=== PATIENT | male | born 1950 | race Caucasian/White ===

== ENCOUNTER 2022-05-06 14:55 | Outpatient (NON) | payer MEDICARE, OTHER, SELFPAY | END 2022-05-06 14:56 | disposition home or self-care (01) | LOC: ANHLAB 15:03 | PROVIDERS: Visit Provider Nurse Practitioner | DX: L81.4 Other melanin hyperpigmentation (principal) | CPT/HCPCS: 88305; 88342 ==

== ENCOUNTER 2023-05-21 14:21 | Outpatient (NON) | payer MEDICARE, OTHER, SELFPAY | END 2023-05-21 14:22 | disposition home or self-care (01) | PROVIDERS: Visit Provider Nurse Practitioner | DX: L81.4 Other melanin hyperpigmentation (principal) | CPT/HCPCS: 88305; 88342 ==